=== PATIENT | male | born 1985 ===

== ENCOUNTER 2020-12-26 11:50 | Outpatient (REF) | payer MEDICAID, SELFPAY | END 2020-12-26 11:51 | disposition home or self-care (01) | LOC: HO.LAB 11:50 | PROVIDERS: Visit Provider Internal Medicine | DX: Z20.822 Contact with and (suspected) exposure to COVID-19 (principal) | CPT/HCPCS: 36415; C9803; U0003; U0005 ==

== ENCOUNTER 2023-04-09 10:47 | Emergency (ER) | payer MEDICAID, OTHER, SELFPAY ==
[2023-04-09 11:22] VITALS: BP 114/70; PULSE 60; RESP 18; TEMP 36.7; O2SAT 98; BMI 31.8
--- NOTE | 2023-04-09 12:51 | ED.BACK ---
HPI - Back Pain/Injury General Chief Complaint: Back Pain/Injury Stated Complaint: Back Pain Time Seen by Provider: 04/09/23 12:42 Source: patient Mode of arrival: ambulatory Limitations: no limitations History of Present Illness HPI Narrative: Patient is a 37 year old male with no medical history presenting with right sided lower back pain after trying to lift heavy boxes 2 days ago. Patient reports he has had similar pain in the past on the same side of his back and he believes it is muscle strain. Patient reports pain with movement and improved pain w/ rest . Patient is ambulatory but needs to walk very slowly. Patient reports taking extra strength ibuprofen he had from the dentist for pain which helped a little but his pain returned with movement. Patient denies fever, chills, nausea, vomiting, diarrhea, night sweats, weakness, radiating pain, incontinence, numbness, urinary/bowel incontinence/retention or tingling. Ambulatory into room wo difficulty. Related Data Previous Rx's Medication Instructions Recorded cyclobenzaprine 10 mg tablet 10 mg PO BEDTIME PRN muscle spasm 04/09/23 #7 tabs ketorolac 10 mg tablet 10 mg PO TID PRN pain 5 days #15 04/09/23 tabs lidocaine 5 % topical patch 1 patch topical DAILY PRN pain #15 04/09/23 ea Allergies Allergy/AdvReac Type Severity Reaction Status Date / Time No Known Allergies Allergy Verified 04/09/23 11:21 Review of Systems Review of Systems: Constitutional : No Weight loss, No Fever, No Chills, ENT/Mouth : No Hearing loss, No Ear Pain, No Nasal Congestion, No Sinus Pain, No Hoarseness, No sore throat, No Rhinorrhea, No Swallowing Difficulty Cardiovascular : No Chest Pain, No SOB Respiratory : No Cough, No Dyspnea Gastrointestinal : No Nausea, No Vomiting, No Diarrhea, No abdominal Pain, No Hematochezia, No Melena Genitourinary : No Dysuria, No Urinary Frequency, No Hematuria, No Urinary Incontinence, Musculoskeletal : positive back pain Skin : No Skin Lesions, No rash Neuro : No Weakness, No Numbness, No Paresthesias, no loss of bowel or bladder incontinence, no saddle anesthesia Yes all other systems are reviewed and are negative [facility] Past Medical History Attestation statement: The following information was validated with the patient. Source: old records reviewed and nursing notes reviewed Social History Social History Alcohol intake: current Alcohol intake frequency: holidays/special occasions only Smoked in Last 30 Days: No Use of substances other than those prescribed or required for medical reasons: No Advance Directives: No Advance Directives Information Provided: Yes Physical Exam Vital Signs: Vital Signs: Last Vital Signs Temp 98.1 F 04/09/23 11:22 Pulse 60 04/09/23 11:22 Resp 18 04/09/23 11:22 BP 114/70 04/09/23 11:22 Pulse Ox 98 04/09/23 11:22 O2 Del Method Room Air 04/09/23 11:22 BMI result Body Mass Index 31.8 vss Appearance: Alert.? Oriented X3.? No acute distress.? Head: Normocephalic, atraumatic, no step-offs or deformities Eyes: Pupils equal, round and reactive to light.? Neck: Normal inspection.? Neck supple.? CVS: Normal heart rate and rhythm.? Pulses normal.? Respiratory: No respiratory distress.? Breath sounds normal.? Abdomen: Soft and nontender.? Skin: Skin warm and dry.? Normal skin color.? Normal skin turgor.? Extremities: No lower extremity edema.? No calf ttp. 5/5 strength to bilateral upper and lower extremities Back: No midline tenderness, no C-spine tenderness, full range of motion, no CVA tenderness bilaterally. + R sided lumbar paraspinous tenderness. No midline pain Neuro: Oriented X 3.? No motor deficit.? No sensory deficit. CN 2-12 intact. Ambulating w/ steady gait normal coordination. No saddle paresthesias. Course Reevaluation(s) Reevaluation #1: Patient's pain improved with Toradol however not completely gone, order Tylenol in addition to Toradol. Patient ambulatory in room without difficulty. He did request an x-ray of the lumbar spine I explained him I do not suspect fractures or dislocations, x-ray ordered and pending. Will call him if the results are abnormal. Time: 14:42 Medications Administered Discontinued Medications Generic Name Dose Route Start Last Admin Trade Name Freq PRN Reason Stop Dose Admin Acetaminophen 975 mg 04/09/23 14:06 04/09/23 14:13 Acetaminophen 325 Mg Tablet PO 04/09/23 14:07 975 mg ONCE ONE Administration Ketorolac Tromethamine 30 mg 04/09/23 13:11 04/09/23 13:17 Ketorolac Tromethamine 30 Mg/Ml Vial IM 04/09/23 13:12 30 mg ONCE ONE Administration Lidocaine 1 patch 04/09/23 13:11 04/09/23 13:15 Lidocaine 4 % Patch Adh..Patch TRANSDERMA 04/09/23 13:12 1 patch ONCE ONE Administration Protocol Medical Decision Making Medical Decision Making MDM Narrative: 1252 37 year old male presents w/ right lower back pain s/p heavy lifting 2 days ago PE- No midline tenderness, no C-spine tenderness, full range of motion, no CVA tenderness bilaterally. + R sided lumbar paraspinous tenderness. No midline pain Likely herniated disc vs lumbar spasm, vs lumbar radiculopathy. Unlikely cauda equina, cord compression, epidural abcess. Plan- tordol, patches. No indication for emergent imaging such as xray, MRI or CT. Differential Diagnosis Differential Diagnoses: The differential diagnosis associated with the presentation includes Likely herniated disc vs lumbar spasm, vs lumbar radiculopathy. Unlikely cauda equina, cord compression, epidural abcess. Admission/Observation Consideration of admission/observation: Escalation of care including admission/observation considered Not indicated Tests considered The following testing was considered but not selected: No indication for emergent imaging such as xray, MRI or CT. Core Measures AMI core measures followed: Yes Measure exclusions: not indicated Critical Care Time Critical Care Time Critical Care Time: No Discharge Plan Discharge Clinical Impression: Lumbar back pain Patient Disposition: Home, Self-Care Instructions: Back Pain (ED) Additional Instructions: Take your medications as prescribed. If you were prescribed antibiotics today, it is important that you take your medication to their entirety, do not skip any doses, do not finish them early. Follow-up with your primary care provider this week. Return to the emergency department with new or worsening symptoms. Such as fevers, chills, chest pain, shortness of breath, nausea, vomiting, dizziness, headache, vision changes, lethargy In case of emergency call 911 Toradol has been sent to your pharmacy, you tolerated this well in the department. Please take this as prescribed do not take this with ibuprofen, or other NSAIDs, do not mix this with alcohol. Side effects of this medication including increased risk for bleeding and possible kidney injury. Prescriptions: New cyclobenzaprine 10 mg tablet 10 mg PO BEDTIME PRN (Reason: muscle spasm) Qty: 7 0RF ketorolac 10 mg tablet 10 mg PO TID PRN (Reason: pain) 5 Days Qty: 15 0RF lidocaine 5 % adhesive patch,medicated 1 patch topical DAILY PRN (Reason: pain) Qty: 15 0RF Rx Instructions: leave on most painful area for up to 12 hrs Referrals: Physician,None [Primary Care Provider] - 2 days [facility] [Provider Group] - 2 days Stand Alone Forms: Work/School Release
== END 2023-04-09 15:04 | disposition home or self-care (01) ==
PROVIDERS: Emergency Provider Emergency Medicine
DX: M54.50 Low back pain, unspecified (principal)
CPT/HCPCS: 72100; 96372; 99283; 99284; J1885